=== PATIENT | female | born 1960 | race Caucasian/White ===

== ENCOUNTER 2024-01-25 08:18 | Outpatient (CLI) | payer BC, SELFPAY ==
[2024-01-25 18:00] LABS: Hemoglobin 13.8 g/dL (12.0-15.0); Mean Corpuscular HGB Conc 32.1 g/dl (32-36); Mean Corpuscular Hemoglobin 30.1 pg (26-34); Mean Corpuscular Volume 93.9 fl (80-100); Mean Platelet Volume 9.8 fl (7.4-10.4); Platelet Count Result 315 k/mm3 (150-375); Red Blood Count 4.58 M/mm3 (4.2-5.4); Red Cell Distribution Width 11.9 % (11.5-14.5); White Blood Count 5.1 K/mm3 (4.5-10.0)
[2024-01-25 18:09] LABS: Alanine Aminotransferase 16 U/L (6-35); Albumin Level 4.3 g/dL (3.5-5.1); Alkaline Phosphatase 62 U/L (38-126); Anion Gap 5 mmol/L (4-12); Aspartate Amino Transferase 31 U/L (14-36); Bilirubin,Total 0.6 mg/dL (0.2-1.3); Blood Urea Nitrogen 17 mg/dL (7-17); Carbon Dioxide 33 mmol/L (22-30); Chloride 102 mmol/L (98-107); Cholesterol 247 mg/dL (0-200); Estimated Glomerular Filt Rate > 60; Glucose 89 mg/dL (65-110); HDL Direct 48 mg/dL; Potassium 5.1 mmol/L (3.4-5.0); Sodium 140 mmol/L (137-145); Triglycerides 136 mg/dL (<150)
[2024-01-25 18:20] LABS: LDL Cholesterol Direct 124 mg/dL
[2024-01-25 18:39] LABS: Free T4 Free Thyroxine 1.28 ng/mL (0.78-2.19)
== END 2024-01-25 08:19 | disposition home or self-care (01) ==
LOC: ANHGOSHLAB 08:19
PROVIDERS: PCP Family Medicine; Visit Provider Family Medicine
DX: E78.5 Hyperlipidemia, unspecified (principal); E07.9 Disorder of thyroid, unspecified; I10 Essential (primary) hypertension
CPT/HCPCS: 36415; 80053; 80061; 84439; 84443; 85027

== ENCOUNTER 2024-02-29 07:24 | Outpatient (CLI) | payer BC, SELFPAY ==
--- NOTE | ~2024-02-29 | MM_ITS ---
EXAMINATION: MM screening servando BI w [place] HISTORY: Screening mammogram TECHNIQUE: Craniocaudal and mediolateral oblique 3-D tomosynthesis images were obtained and synthetic 2-D images were generated. CAD analysis was submitted and interpreted. COMPARISON: 10/17/2012 BREAST PARENCHYMAL COMPOSITION:Not Dense. There are scattered areas of fibroglandular density. FINDINGS: No suspicious mass, calcification, or architectural distortion are identified in either esvin ast to suggest malignancy. There has been no suspicious interval change. IMPRESSION: No mammographic evidence of malignancy. Recommend routine screening mammography in one year. BI-RADS Category 1: Negative Reviewed, dictated and finalized at location . EATING MACHINE SET UP OPERATOR
== END 2024-02-29 07:25 | disposition home or self-care (01) ==
LOC: CHSIMG 07:28
PROVIDERS: PCP Family Medicine; Visit Provider Family Medicine
DX: Z12.31 Encounter for screening mammogram for malignant neoplasm of breast (principal)
CPT/HCPCS: 77063; 77067

== ENCOUNTER 2024-06-02 08:15 | Outpatient (CLI) | payer BC, SELFPAY ==
--- OUTSIDE RECORDS SUMMARY | 2024-06-02 08:30 | XMS_ITS | Data Portability ---
Author Organization [facility], Main Office Address [address] [place] [address] Assessment No assessment recorded. Plan of Treatment Reminders Order Date Submit Date Provider Last Modified By Organization Details Last Modified Time Details Appointments None recorded. Lab pap, IG + reflex HPV (16+18+45) 2022 janel [email or web address] [facility], [address] [place], [address], 14:04:23 noninvasive colorectal cancer DNA + occult blood screening, QL, stool 2022 023 [id number] [facility] (Cologuard Orders Only), [address], [address], [place], [address], 10:44:33 lipid panel, serum 2022 [facility], [address] [place], [address], 14:11:50 CMP, serum or plasma 2022 023 [facility], [address] [place], [address], 14:12:01 Referral None recorded. Procedures None recorded. Surgeries None recorded. Imaging MAMMO, screening, bilateral 2022 023 [facility], [address] [place], [address], 12:14:02 Medication Orders None recorded. Patient TargetsNo targets recorded. Patient InstructionsNo instructions recorded. Reason for Referral None Reported. Results Created Date Observation Date Name Description Value Unit Range Abnormal Flag Note LastModifiedBy Organization Detail LastModifiedTime 01/14/2001/13/2022 LIPID PANEL cholesterol 218 mg/dL 140-19 9 high NIH KYARA NSUS RECOM MENDA TION FOR MARY KAY STERO L: ADULT CHILD LOW RISK: <200 <170 BORDE RLINE : <200- 239 ----- HIGH RISK: >240 >200 Not Available [facility] (Lab) [address] [place], [address], 01/13/2022 15:52:55 01/14/2001/13/2022 LIPID PANEL triglyceride s 87 mg/dL 0-150 NIH KYARA NSUS REPOR T RECOM MENDA TION FOR TRIGL YCERI MAKI: ADULT CHILD LOW RISK: <150 ----- BODER LINE: 150-1 99 ----- HIGH RISK: >200 ----- Not Available [facility] (Lab) [address] [place], [address], 01/13/2022 15:52:55 01/14/2001/13/2022 LIPID PANEL HDL cholesterol 58 mg/dL 40- Not Available [facility] (Lab) [address] [place], [address], 01/13/2022 15:52:55 01/14/20 22 01/13/2022 LIPID PANEL LDL cholesterol, calculated 143 mg/dL 0-130 high NIH KYARA NSUS REPOR T RECOM MENDA TIONS FOR LDL: ADULT CHILD LOW RISK <130 <110 (OPTI MAL LDL) <100 ----- BORDE RLINE : 130-1 59 ----- HIGH RISK: >160 >130 A TRIGL YCERI DE RESUL T >400 INVAL IDATE S THE CALCU LATIO N FOR LDL FRACT IONAT ION - THE LDL RESUL T WILL NOT BE REPOR ROSE. Not Available [facility] (Lab) [address] [place], [address], 01/13/2022 15:52:55 01/14/2001/13/2022 TSH thyroid-stim ulating hormone 2.370 uIU/m L 0.465- 4.680 Not Available [facility] (Lab) [address] [place], [address], 01/13/2022 16:16:04 01/14/2001/13/2022 COMPR EHENS OLENA METAB OLIC PANEL anion gap 9.9 mmol/ L 14-22 low Not Available [facility] (Lab) [address] [place], [address], 01/13/2022 15:52:58 01/14/2001/13/2022 COMPR EHENS OLENA METAB OLIC PANEL sodium 138 mmol/ L 137-14 5 Not Available [facility] (Lab) [address] [place], [address], 01/13/2022 15:52:58 01/14/2001/13/2022 COMPR EHENS OLENA METAB OLIC PANEL potassium 4.9 mmol/ L 3.5-5. 1 Not Available [facility] (Lab) [address] [place], [address], 01/13/2022 15:52:58 01/14/2001/13/2022 COMPR EHENS OLENA METAB OLIC PANEL chloride 101 mmol/ L 98-107 Not Available [facility] (Lab) [address] [place], [address], 01/13/2022 15:52:58 01/14/2001/13/2022 COMPR EHENS OLENA METAB OLIC PANEL carbon dioxide 32 mmol/ L 22-30 high Not Available [facility] (Lab) [address] [place], [address], 01/13/2022 15:52:58 01/14/20 22 01/13/2022 COMPR EHENS OLENA METAB OLIC PANEL glucose 95 mg/dL 70-99 Not Available [facility] (Lab) [address] [facility] [place], [address], 01/13/2022 15:52:58 01/14/20 22 01/13/2022 COMPR EHENS OLENA METAB OLIC PANEL BUN 17 mg/dL 8-19 Not Available [facility] (Lab) [address] [place], [address], 01/13/2022 15:52:58 01/14/20 22 01/13/2022 COMPR EHENS OLENA METAB OLIC PANEL creatinine 0.86 mg/dL 0.66-1 .25 Not Available [facility] (Lab) [address] [place], [address], 01/13/2022 15:52:58 01/14/20 22 01/13/2022 COMPR EHENS OLENA METAB OLIC PANEL GFR >60 Refer ence Range : Bowie ge GFR Healt hy Adult : >60 mL/mi n/1.7 3 m2 Chron ic Kidne y Disea se: 15-60 mL/mi n/1.7 3 m2 Kidne y Failu re: <15/m L/min /1.73 m2 www.n iddk. nih.g ov The MDRD study equat ion has not been valid ated in child artem <18 years of age; pregn ant women ; the elder ly >85 years of age; or in some racia l or ethni c subgr oups, such as [facility] nics. Outsi de the valid ated reyes eters , estim ated GFR is less accur ate, requi ring clini hi judgm ent on a case- by-ca se basis . Clini hi inter preta tion for other races and ages must be made by the clini yumi. The MDRD study equat ion has not been valid ated for the evalu ation of serum creat inine relat ed to nutri brianna l statu s or medic ation usage . For perso ns <18 years of age, a pedia tric GFR calcu lator is avail able on the [facility] websi te: https ://margarita sadler.kid anika.o rg/pr ofess ional s/kdo qi/gf r_cal culat or Not Available [facility] (Lab) [address] [place], [address], 01/13/2022 15:52:58 01/14/20 22 01/13/2022 COMPR EHENS OLENA METAB OLIC PANEL alkaline phosphatase 62 U/L 38-126 Not Available [facility] (Lab) [address] [place], [address], 01/13/2022 15:52:58 01/14/20 22 01/13/2022 COMPR EHENS OLENA METAB OLIC PANEL alanine aminotransfe rase 19 U/L 0-35 Not Available [facility] (Lab) [address] [place], [address], 01/13/2022 15:52:58 01/14/20 22 01/13/2022 COMPR EHENS OLENA METAB OLIC PANEL aspartate aminotransfe rase 25 U/L 15-37 Not Available [facility] (Lab) [address] [place], [address], 01/13/2022 15:52:58 01/14/20 22 01/13/2022 COMPR EHENS OLENA METAB OLIC PANEL bilirubin, total 0.80 mg/dL 0.20-1 .30 Not Available [facility] (Lab) [address] [place], [address], 01/13/2022 15:52:58 01/14/20 22 01/13/2022 COMPR EHENS OLENA METAB OLIC PANEL calcium 9.7 mg/dL 8.4-10 .2 Not Available [facility] (Lab) [address] [place], [address], 01/13/2022 15:52:58 01/14/20 22 01/13/2022 COMPR EHENS OLENA METAB OLIC PANEL total protein 7.4 g/dL 6.3-8. 2 Not Available [facility] (Lab) [address] [place], [address], 01/13/2022 15:52:58 01/14/2001/13/2022 COMPR EHENS OLENA METAB OLIC PANEL albumin 4.5 g/dL 3.4-5. 0 Not Available [facility] (Lab) [address] [place], [address], 01/13/2022 15:52:58 01/14/2001/13/2022 COMPR EHENS OLENA METAB OLIC PANEL globulin 2.9 g/dL 2.6-4. 2 Not Available [facility] (Lab) [address] [place], [address], 01/13/2022 15:52:58 01/14/2001/13/2022 COMPR EHENS OLENA METAB OLIC PANEL A/G ratio 1.6 ratio 1.0-2. 0 Not Available [facility] (Lab) [address] [place], [address], 01/13/2022 15:52:58 02/02/2002/01/2022 urina lysis , dipst ick Leukocytes (reference range: negative latasha/ l) Trace Not Available [facility] [address], [place], [address], 02/01/2022 15:07:14 02/02/20 22 02/01/2022 urina lysis , dipst ick Nitrite (reference rage: negative mg/dl) negati ve Not Available [facility], [place], [address], 02/01/2022 15:07:14 02/02/20 22 02/01/2022 urina lysis , dipst ick Urobilinogen (reference range: 0.2-1 mg/dl) 0.2 Not Available [facility] [address] , [address], [place], [address], 02/01/2022 15:07:14 02/02/2002/01/2022 urina lysis , dipst ick Protein (reference range: negative mg/dl) Negati ve Not Available [address] , [address], [place], [address], 02/01/2022 15:07:14 02/02/20 22 02/01/2022 urina lysis , dipst ick pH (reference range: 5-7) 5.5 Not Available [address] , [address], [place], [address], 02/01/2022 15:07:14 02/02/2002/01/2022 urina lysis , dipst ick Blood (reference range: negative Doni/ l) Non-He molyze d: Trace Not Available [address] , [address], [place], [address], 02/01/2022 15:07:14 02/02/20 22 02/01/2022 urina lysis , dipst ick Specific [place] (reference range: 1.005-1.030) 1.005 Not Available [address] , [address], [place], [address], 02/01/2022 15:07:14 02/02/2002/01/2022 urina lysis , dipst ick Ketone (reference range: negative mg/dl) Negati ve Not Available [address] , [address], [place], [address], 02/01/2022 15:07:14 02/02/20 22 02/01/2022 urina lysis , dipst ick Bilirubin (reference range: negative mg/dl) Negati ve Not Available [address], [place], [address], 02/01/2022 15:07:14 02/02/2002/01/2022 urina lysis , dipst ick Glucose (reference range: negative mg/dl) Negati ve Not Available [address] , [address], [place], [address], 02/01/2022 15:07:14 02/02/2002/01/2022 urina lysis , dipst ick Appearance Clear Not Available [address], [place], [address], 02/01/2022 15:07:14 02/02/2002/01/2022 urina lysis , dipst ick Color Pale Yellow Not Available [address] , [address], [place], [address], 02/01/2022 15:07:14 01/16/20 23 01/19/2023 PAP THINP REP W/HPV ,RF 16/18 /45 diagnosis: Commen t . NEGVITALY OLENA FOR INTRA EPITH ELIAL LESIO N OR YAA LAGUNAS . CELLU LAR CRABTREE ES ASSOC IATED WITH ATROP HY ARE PRESE NT. THIS SPECI MEN WAS RESCR EENED PART OF OUR QUALI TY CONTR OL PROGR AM. Not Available [facility] (Lab) [address] [place], [address], 01/19/2023 15:10:20 01/16/20 23 01/19/2023 PAP THINP REP W/HPV ,RF 16/18 /45 specimen adequacy: Commen t . Satis facto ry for evalu ation . Endoc ervic al compo nent may not be disti nguis hed in cases of atrop hy. Not Available [facility] (Lab) [address] [place], [address], 01/19/2023 15:10:20 01/16/20 23 01/19/2023 PAP THINP REP W/HPV ,RF 16/18 /45 performed by: Shweta Kasper , Cytot echno logis t Not Available [facility] (Lab) [address] [place], [address], 01/19/2023 15:10:20 01/16/20 23 01/19/2023 PAP THINP REP W/HPV ,RF 16/18 /45 QC reviewed by: Shweta Morales r, Super visor y Cytot echno logis t (ASCP ) Not Available [facility] (Lab) [address] [place], [address], 01/19/2023 15:10:20 01/16/20 23 01/19/2023 PAP THINP REP W/HPV ,RF 16/18 /45 . . Not Available [facility] (Lab) [address] [place], [address], 01/19/2023 15:10:20 01/16/20 23 01/19/2023 PAP THINP REP W/HPV ,RF 16/18 /45 note: Shweta weiss The Pap smear is a scree william test desig adeline to aid in the detec tion of rose ligna nt and malig nant condi tions of the uteri ne cervi x. It is not a diagn ostic proce dure and shoul d not be used as the sole means of detec ting cervi hi cance r. Both false -posi tive and false -nega tive repor ts do occur . . Not Available [facility] (Lab) [address] [place], [address], 01/19/2023 15:10:20 01/16/20 23 01/19/2023 PAP THINP REP W/HPV ,RF 16/18 /45 test methodology: Commen t This liqui d based ThinP rep(R ) pap test was screirena lr with the use of an image guide caron saucedo Not Available [facility] (Lab) [address] [place], [address], 01/19/2023 15:10:20 01/16/20 23 01/19/2023 PAP THINP REP W/HPV ,RF 16/18 /45 aptima HPV, reflex Commen t This nucle ic acid ampli ficat ion test detec ts fourt een high- risk HPV types (16,1 8,31, 33,35 ,39,4 5,51, 52,56 ,58,5 9,66, 68) witho ut diffe renti ation . Crite samina not met, HPV Genot ype not perfo rmed. Perfo rmed at: [facility] [place] [address] [facility] , [facility] [address] Lab Direc tor: Carly osborn MD, Phone : [phone] Perfo rmed at: =[facility] [place] [address] , [place] [address] Lab Direc tor: Carly osborn MD, Phone : [phone] Not Available [facility] (Lab) [address] [place], [address], 01/19/2023 15:10:20 01/23/20 23 01/22/2023 LIPID PANEL cholesterol 227 mg/dL 140-19 9 high NIH KYARA NSUS RECOM MENDA TION FOR MARY KAY STERO L: ADULT CHILD LOW RISK: <200 <170 BORDE RLINE : <200- 239 ----- HIGH RISK: >240 >200 Not Available [facility] (Lab) [address] [place], [address], 01/22/2023 14:11:50 01/23/20 23 01/22/2023 LIPID PANEL triglyceride s 74 mg/dL 0-150 NIH KYARA NSUS REPOR T RECOM MENDA TION FOR TRIGL YCERI MAKI: ADULT CHILD LOW RISK: <150 ----- BODER LINE: 150-1 99 ----- HIGH RISK: >200 ----- Not Available [facility] (Lab) [address] [place], [address], 01/22/2023 14:11:50 01/23/2001/22/2023 LIPID PANEL HDL cholesterol 60 mg/dL 40- Not Available [facility] (Lab) [address] [place], [address], 01/22/2023 14:11:50 01/23/2001/22/2023 LIPID PANEL LDL cholesterol, calculated 152 mg/dL 0-130 high NIH KYARA NSUS REPOR T RECOM MENDA TIONS FOR LDL: ADULT CHILD LOW RISK <130 <110 (OPTI MAL LDL) <100 ----- BORDE RLINE : 130-1 59 ----- HIGH RISK: >160 >130 A TRIGL YCERI DE RESUL T >400 INVAL IDATE S THE CALCU LATIO N FOR LDL FRACT IONAT ION - THE LDL RESUL T WILL NOT BE REPOR ROSE. Not Available [facility] (Lab) [address] [place], [address], 01/22/2023 14:11:50 01/23/20 23 01/22/2023 COMPR EHENS OLENA METAB OLIC PANEL sodium 139 mmol/ L 137-14 5 Not Available [facility] (Lab) [address] [place], [address], 01/22/2023 14:12:01 01/23/20 23 01/22/2023 COMPR EHENS OLENA METAB OLIC PANEL potassium 4.5 mmol/ L 3.5-5. 1 Not Available [facility] (Lab) [address] [place], [address], 01/22/2023 14:12:01 01/23/2001/22/2023 COMPR EHENS OLENA METAB OLIC PANEL chloride 101 mmol/ L 98-107 Not Available [facility] (Lab) [address] [place], [address], 01/22/2023 14:12:01 01/23/2001/22/2023 COMPR EHENS OLENA METAB OLIC PANEL carbon dioxide 32 mmol/ L 22-30 high Not Available [facility] (Lab) [address] [place], [address], 01/22/2023 14:12:01 01/23/2001/22/2023 COMPR EHENS OLENA METAB OLIC PANEL anion gap 10.5 mmol/ L 14-22 low Not Available [facility] (Lab) [address] [place], [address], 01/22/2023 14:12:01 01/23/2001/22/2023 COMPR EHENS OLENA METAB OLIC PANEL glucose 84 mg/dL 70-99 Not Available [facility] (Lab) [address] [place], [address], 01/22/2023 14:12:01 01/23/2001/22/2023 COMPR EHENS OLENA METAB OLIC PANEL BUN 17 mg/dL 8-19 Not Available [facility] (Lab) [address] [place], [address], 01/22/2023 14:12:01 01/23/2001/22/2023 COMPR EHENS OLENA METAB OLIC PANEL creatinine 0.95 mg/dL 0.66-1 .25 Not Available [facility] (Lab) [address] [place], [address], 01/22/2023 14:12:01 01/23/2001/22/2023 COMPR EHENS OLENA METAB OLIC PANEL GFR 60 Refer ence Range : Bowie ge GFR Healt hy Adult : >60 mL/mi n/1.7 3 m2 Chron ic Kidne y Disea se: 15-60 mL/mi n/1.7 3 m2 Kidne y Failu re: <15/m L/min /1.73 m2 www.n iddk. nih.g ov The MDRD study equat ion has not been valid ated in child artem <18 years of age; pregn ant women ; the elder ly >85 years of age; or in some racia l or ethni c subgr oups, such as Hispa nics. Outsi de the valid ated reyes eters , estim ated GFR is less accur ate, requi ring clini hi judgm ent on a case- by-ca se basis . Clini hi inter preta tion for other races and ages must be made by the clini yumi. The MDRD study equat ion has not been valid ated for the evalu ation of serum creat inine relat ed to nutri brianna l statu s or medic ation usage . For perso ns <18 years of age, a pedia tric GFR calcu lator is avail able on the [facility] websi te: https ://margarita w.kamini donaldson.o rg/pr ofess ional s/kdo qi/gf r_cal culat or Not Available [facility] (Lab) [address] [place], [address], 01/22/2023 14:12:01 01/23/2001/22/2023 COMPR EHENS OLENA METAB OLIC PANEL alkaline phosphatase 57 U/L 38-126 Not Available [facility] (Lab) [address] [place], [address], 01/22/2023 14:12:01 01/23/2001/22/2023 COMPR EHENS OLENA METAB OLIC PANEL alanine aminotransfe rase 19 U/L 0-35 Not Available [facility] (Lab) [address] [place], [address], 01/22/2023 14:12:01 01/23/2001/22/2023 COMPR EHENS OLENA METAB OLIC PANEL aspartate aminotransfe rase 26 U/L 15-37 Not Available [facility] (Lab) [address] [place], [address], 01/22/2023 14:12:01 01/23/20 23 01/22/2023 COMPR EHENS OLENA METAB OLIC PANEL bilirubin, total 0.70 mg/dL 0.20-1 .30 Not Available [facility] (Lab) [address] [place], [address], 01/22/2023 14:12:01 01/23/2001/22/2023 COMPR EHENS OLENA METAB OLIC PANEL calcium 10.0 mg/dL 8.4-10 .2 Not Available [facility] (Lab) [address] [place], [address], 01/22/2023 14:12:01 01/23/2001/22/2023 COMPR EHENS OLENA METAB OLIC PANEL total protein 7.5 g/dL 6.3-8. 2 Not Available [facility] (Lab) [address] [place], [address], 01/22/2023 14:12:01 01/23/2001/22/2023 COMPR EHENS OLENA METAB OLIC PANEL albumin 4.4 g/dL 3.4-5. 0 Not Available [facility] (Lab) [address] [place], [address], 01/22/2023 14:12:01 01/23/2001/22/2023 COMPR EHENS OLENA METAB OLIC PANEL globulin 3.1 g/dL 2.6-4. 2 Not Available [facility] (Lab) [address] [place], [address], 01/22/2023 14:12:01 01/23/20 23 01/22/2023 COMPR EHENS OLENA METAB OLIC PANEL A/G ratio 1.4 ratio 1.0-2. 0 Not Available [facility] (Lab) [address], [place], [address], 01/22/2023 14:12:01 01/26/20 23 01/25/2023 COLOG UARD cologuard result reportable NEGATI VE negati ve normal NEGAT OLENA TEST RESUL T. A negat olena Colog uard resul t indic ates a low likel ihood that a color ectal cance r (CRC) or advan valorie adeno ma (jesús omato us polyp s with more advan valorie pre-m align ant featu res) is prese nt. The [facility] e that a perso n with a negat olena Colog uard test has a color ectal cance r is less than 1 in 1500 (nega tive predi ctive value >99.9 %) or has an advan valorie adeno ma is less than 5.3% (nega tive predi ctive value 94.7% ). These data are based on a prosp ectiv e cross -sect ional study of ,00 0 indiv idual s at [facility] risk for color ectal cance r who were scree adeline with both Colog uard and colon oscop y. (Carlos Perez et al, N Engl J Med 2014; 370(1 4):12 86-12 97) The reynold l value (refe rence range ) for this assay is negat olena. COLOG UARD RE-SC REEMELVIN NG RECOM MENDA TION: Perio dic color ectal cance r scree william is an impor tant part of preve ntive healt hcare for asymp tomat ic indiv idual s at [facility] risk for color ectal cance r. Follo wing a negat olena Colog uard resul t, the Ameri can Cance r Socie ty and U.S. Multi -Soci ety Task Force scree william guide lines recom mend a Colog uard re-sc reeni ng inter joanne of 3 years . Refer ences : Ameri can Cance r Socie ty Guide line for Color ectal Cance r Scree william: https ://margarita w.can cer.o rg/ca ncer/ colon -rect al-ca ncer/ detec tion- diagn osis- stagi ng/ac s-rec ommen datio ns.ht ml.; Braden OLMSTEAD, Nathan reardon CR, Chralie ValdezK, Color ectal Cance r Screirena gomezg: Recom menda tions for Physi cians and Patie nts from the U.S. Multi -Soci ety Task Force on Color ectal Cance r ScreAvni malaveog y 2017; 112:1 016-1 030. TEST DESCR IPTIO N: Wanblee site algor ithmi c dar sis of stool DNA-b iomar kers with hemog lobin immun oassa y. Quant itati ve value s of indiv idual bioma rkers are not repor table and are not assoc iated with indiv idual bioma rker resul t refer ence range s. Colog uard is inten ded for color ectal cance r scree william of adult s of eithe r sex, 45 years or older , who are at [facility] for color ectal cance r (CRC) . Colog uard has been appro jo ann for use by the U.S. FDA. The perfo rmanc e of Colog uard was estab lishe d in a cross secti onal study of [facility] adult s aged 50-84 . Colog uard perfo rmanc e in patie nts ages 45 to 49 years was estim ated by luz elena-g roup dar sis of near- age group s. Colon oscop ies perfo rmed for a posit olena resul t may find as the most clini katelynn signi ficralf t lesio n: color ectal cance r [4.0% ], advan valorie adeno ma (incl uding sessi le bienvenido rose polyp s great er than or equal to 1cm diame ter) [20%] or non- advan valorie adeno ma [31%] ; or no color ectal neopl sugar [45%] . These estim ates are deriv ed from a prosp ectiv e cross -sect ional scree william study of 10,00 0 indiv idual s at [facility] for color ectal cance r who were scree adeline with both Colog uard and colon oscop y. (Carlos Weiss. et al, N Engl J Med 2014; 370(1 4):12 86-12 97.) Colog uard may produ ce a false negat olena or false posit olena resul t (no color ectal cance r or preca ncero us polyp prese nt at colon oscop y follo w up). A negat olena Colog uard test resul t does not guara ntee the absen ce of CRC or advan valorie adeno ma (pre- cance r). The curre nt Colog uard scree william inter joanne is every 3 years . (Amer ican Cance r Socie ty and U.S. Multi -Soci ety Task Force ). Colog uard perfo rmanc e data in a ,00 0 patie nt pivot al study using colon oscop y as the refer ence metho d can be acces sed at the [facility] locat ion: www.e xactl abs.c om/re deena . Addit ional descr iptio n of the Colog uard test proce ss, warni ngs and preca ution s can be found at www.c ologu ramirez.c om. Not Available [facility] (Cologuard Orders Only) [address], [place], [address], 02/02/2023 02:16:30 12/09/19 21 12/08/2020 MAMMO , scree william, bilat eral No observ ation record ed. [id number] [facility] [address] [place], [address], 06/07/2022 06:05:12 12/09/19 21 MAMMO , scree william, digit al, bilat eral [facility] [address] [place] [address] Patien t Name: ROSSANA HAY Access ion #: [id number] Sex: F : 1960 9 Locati on: RA2 Attend ing Physic vince: ELKHAT IB, RUNDA Orderi ng Physic vince: ELKHAT IB, RUNDA Exam Date: 12/09/19 2:53 PM Exam Name: DIGITA L LILIA BILAT SCREEN Admitt ing Diagno sis(es ): RADIOL OGY REPORT - FINAL EXAM: MG DIGITA L LILIA BILAT SCREEN HISTOR Y: screen ing mammog bhumi COMPAR HECTOR: Mammog minda dated 2019 and 2018 and 2007 TECHNI QUE: Bilate ral CC and MLO views of the breast s were perfor med. Digita l Mammog minda images were obtain ed. CAD (compu ter assist ed detect ion) was utiliz ed. FINDIN GS: The breast s are hetero geneou sly dense, which may obscur e small masses . Asymme tric left upper outer quadra nt breast tissue is redemo nstrat ed. No masses , asymme tries, suspic ious calcif icatio ns, or carmina ectura l Page 1 of 2 [facility] t Name: ROSSANA HAY Access ion #: [id number] Sex: F : 1960 9 Exam Date: 12/09/19 2:53 PM Exam Name: DIGITA L LILIA BILAT SCREEN Admitt ing Diagno sis(es ): distor tion are seen. IMPRES LIZZIE: BIRADS 1: Assess ment comple te. Negati ve. Recomm end annual screen ing mammog minda. Accord ing to the [employer], yearly mammog daniel are recomm ended starti ng at age 40 and contin uing as long as the woman is in good health . Clinic al Breast Exam should be part of the period health exam-a bout every 3 years for women in their 20s and 30s and every year for women 40 and over. Breast self-e xam is an option for women in their 20s. Any breast change noted on the breast self-e xam she would be report ed prompt ly to the [facility] er. A negati ve mammog minda report should not discou rage follow -up or biopsy of a clinic ally signif icant findin g and/or abnorm ality. Dense breast tissue may obscur e small neopla sms. This [facility] has been entere d into a mammog minda remind er system with a target date for her next mammog bhumi. Create d and electr onical ly signed by: Manuel Gomes ch, DO Signed Date: 12/09/19 3:15 PM (CT) Dictat ed by: Manuel Gomes ch, DO (CT) (CT) Page 2 of 2 [id number] [facility] (Imaging) [address] [place], [address], 06/07/2022 06:05:12 01/26/2001/25/2022 MAMMO , scree william, bilat eral No observ ation record ed. [id number] [facility] Add On Lab Orders [address] [place], [address], 06/07/2022 06:05:12 01/26/20 MAMMO , scree william, digit al, bilat eral [facility] [address] [place] [address] Jet weiss Name: ROSSANA HAY Access ion #: [id number] Sex: F : 1960 4 Locati on: RA2 Attend ing Physic vince: ELKHAT IB, RUNDA Orderi ng Physic vince: ELKHAT IB, RUNDA Exam Date: 2021 8:00 AM Exam Name: MG DIGITA L LILIA BILAT SCREEN Admitt ing Diagno sis(es ): RADIOL OGY REPORT - FINAL EXAM: MG DIGITA L LILIA BILAT SCREEN HISTOR Y: Screen ing mammog minda COMPAR HECTOR: 2020, 2019, 2014 TECHNI QUE: Bilate ral CC and MLO views of the breast s were perfor med. Digita l Mammog minda images were obtain ed. CAD (compu ter assist ed detect ion) was utiliz ed. FINDIN GS: There are scatte red areas of fibrog landul ar densit y. No masses , asymme tries, suspic ious calcif icatio ns, or carmina ectura l distor tion are seen. Page 1 of 2 [facility] Jet weiss Name: ROSSANA HAY Access ion #: [id number] Sex: F : 1960 4 Exam Date: 2021 8:00 AM Exam Name: MG DIGITA L LILIA BILAT SCREEN Admitt ing Diagno sis(es ): IMPRES LIZZIE: BIRADS 1: Assess ment comple te. Negati ve. Recomm end annual screen ing mammog minda. Accord ing to the [employer], yearly mammog daniel are recomm ended starti ng at age 40 and contin uing as long as the woman is in good health . Clinic al Breast Exam should be part of the period ic health exam-a bout every 3 years for women in their 20s and 30s and every year for women 40 and over. Breast self-e xam is an option for women in their 20s. Any breast change noted on the breast self-e xam she would be report ed prompt ly to the [facility]. A negati ve mammog minda report should not discou rage follow -up or biopsy of a clinic ally signif icant findin g and/or abnorm ality. Dense breast tissue may obscur e small neopla sms. This jet weiss has been entere d into a mammog minda remind er system with a target date for her next mammog bhumi. Create d and electr onical ly signed by: Carloz brewer MD Signed Date: 2021 2:26 PM (CT) Dictat ed by: Carloz brewer MD DD: 2021 2:26 PM (CT) DT: 2021 2:26 PM (CT) Page 2 of 2 [id number] [facility] (Imaging) [address] [place], [address], 06/07/2022 06:05:12 01/20/20 23 MAMMO , scree william, digit al, bilat eral [facility] [address] [facility] [place] [address] Patien t Name: ROSSANA HAY Access ion #: [id number] Sex: F : 1960 4 Dictat ed By: Colleen Ervin Attend ing Physic vince: ELKHAT IB, RUNDA Orderi ng Physic vince: ELKHAT IB, RUNDA Exam Date: 2022 09:40 AM Exam Name: MG DIGITA L LILIA BILAT SCREEN Admitt ing Diagno sis(es ): CLINIC AL HISTOR Y: Screen ing COMPAR HECTOR STUDY: 2021; 12/09/19 21 TECHNI QUE: Using a full field digita l 2D mammog minda unit CC and MLO views of both breast s are perfor med. FINDIN GS: BREAST COMPOS ITION: The bilate ral breast s are hetero geneou sly dense, which may obscur e small masses . No suspic ious masses , carmina ectura l distor tion, asymme tries or suspic ious calcif icatio ns in both breast s. IMPRES LIZZIE: No eviden ce of malign jamaal. Recomm end annual mammog bhumi. BIRADS : 2 - Benign Electr onical ly Signed by: Colleen Ervin at 2022 11:05: 41 AM Page 1 [id number] [facility] (Imaging) [address] [place], [address], 01/22/2023 08:46:53 01/20/20 23 01/19/2023 MAMMO , scree william, bilat eral No observ ation record ed. [id number] [facility] [address] [place], [address], 01/22/2023 08:46:53 Result Notes None recorded. Problems Name Problem SNOMED Code Status Onset Date Resolution Date Notes Provider Name and Address Organization Details Recorded Time Shoulder joint pain 463394354 Active Not Available [facility] 3 08:59:35 Hypertensive disorder 79268721 Active Not Available [facility] 3 08:59:35 Contact dermatitis 66763706 Active Not Available [facility] 3 08:59:35 Hypothyroidis m 95381950 Active Not Available [facility] 3 08:59:35 Stress 12750016 Active Not Available [facility] 3 08:59:35 Anxiety 71089572 Active 2022 Not Available [facility] 3 08:59:35 Hyperlipidemi a 18745333 Active 2022 Not Available [facility] 3 08:59:35 Problem Notes None recorded. Procedures Surgical History Date Name Laterality Status Provider Name and Address Organization Details Recorded Time 12/09/19 21 screening mammography completed Not Available [facility] 06/07/2022 05:53:26 12/02/19 21 screening for malignant neoplasm of cervix completed Not Available [facility] 06/07/2022 05:53:26 Imaging Results Imaging Date Name Status LastModified by Organiz ation Details LastModified Time 12/08/2020 MAMMO, screening, bilateral completed [id number] [facility] [address] [place], [address], 06/07/2022 06:05:12 12/08/2020 MAMMO, screening, digital, bilateral completed [id number] [facility] (Imaging) [address] [place], [address], 06/07/2022 06:05:12 01/25/2022 MAMMO, screening, bilateral completed [id number] [facility] Add On Lab Orders [address] [place], [address], 06/07/2022 06:05:12 01/25/2022 MAMMO, screening, digital, bilateral completed [id number] [facility] (Imaging) [address] [place], [address], 06/07/2022 06:05:12 01/19/2023 MAMMO, screening, digital, bilateral completed [address] (Imaging) [address] [place], [address], 01/22/2023 08:46:53 01/19/2023 MAMMO, screening, bilateral completed [address] [place], [address], 01/22/2023 08:46:53 Procedure Notes None recorded. Medical Equipment None Reported. Allergies No known drug allergies Medications Name Sig Start Date Stop Date Status Note LastModified by Organization Details LastModified Time methocarbam ol 500 mg tablet 11/03 completed Not Available Not Available Not Available prednisone 10 mg tablet 05/22 completed Not Available Not Available Not Available azithromyci n 250 mg tablet TAKE 2 TABLETS (500 MG) BY ORAL ROUTE ONCE DAILY FOR 1 DAY THEN 1 TABLET (250 MG) BY ORAL ROUTE ONCE DAILY FOR 4 DAYS active Not Available Not Available No t Available citalopram 10 mg tablet TAKE 1 TABLET BY MOUTH ONCE DAILY active Not Available Not Available No t Available ciprofloxac in 500 mg tablet Take 1 tablet every 12 hours by oral route for 5 days. 01/15 completed Not Available Not Available Not Available sulfamethox azole 800 mg-trimetho prim 160 mg tablet 05/22 completed Not Available Not Available Not Available triamterene 37.5 mg-hydrochl orothiazide 25 mg capsule TAKE 1 CAPSULE DAILY active Not Available Not Available No t Available triamcinolo ne acetonide 0.1 % topical cream APPLY A THIN LAYER TO THE AFFECTED AREA(S) BY TOPICAL ROUTE 2 TIMES PER DAY active Not Available Not Available No t Available levothyroxi ne 88 mcg tablet Take 1 tablet by mouth once daily active Not Available Not Available No t Available benzonatate 100 mg capsule 11/20 completed Not Available Not Available Not Available oseltamivir 75 mg capsule 11/20 completed Not Available Not Available Not Available methylpredn isolone 4 mg tablets in a dose pack Take by oral route. Take as per package direction s 05/22 completed Not Available Not Available Not Available amoxicillin 875 mg-potassiu m clavulanate 125 mg tablet Take 1 tablet every 12 hours by oral route. 10/30 completed Not Available Not Available Not Available Shingrix (PF) 50 mcg/0.5 mL intramuscul ar suspension, kit 11/03 completed Not Available Not Available Not Available Flucelvax Quad (PF) 60 mcg (15 mcg x 4)/0.5 mL IM syringe active Not Available Not Available N ot Available Afluria Qd (36 mos up)(PF)60 mcg (15 mcg x4)/0.5 mL IM syringe active Not Available Not Available N ot Available Vitals Date Recorded Body mass index (BMI) Body height Oxygen saturation Oxygen saturation in Arterial blood by Pulse oximetry Heart rate Body temperature Body weight Systolic blood pressure Diastolic blood pressure Provider Name and Address Organization Details Last Updated DateTime 1 22.5 kg/m2 162.56 cm 96 % 96 % 71 /min 97.5 [degF] 64824.6 g 140 mm[Hg] 80 mm[Hg] Not Available [facility] 3 05:55:50 Date Recorded Body mass index (BMI) Body height Oxygen saturation Oxygen saturation in Arterial blood by Pulse oximetry Heart rate Body temperature Body weight Systolic blood pressure Diastolic blood pressure Provider Name and Address Organization Details Last Updated DateTime 2 22.5 kg/m2 162.56 cm 97 % 97 % 74 /min 96.4 [degF] 04734.6 g 144 mm[Hg] 80 mm[Hg] Not Available [facility] 3 05:55:50 Date Recorded Body height Provider Name an d Address Organization Details Last Updated DateTime 02/01/2022 162.56 cm Not Available [facility] 3 05:55:51 Date Recorded Body height Body mass index (BMI) Body weight Body temperature Heart rate Oxygen saturation Oxygen saturation in Arterial blood by Pulse oximetry Systolic blood pressure Diastolic blood pressure Provider Name and Address Organization Details Last Updated DateTime 3 162.56 cm 21.6 kg/m2 26414.6 4 g 97.7 [degF] 69 /min 99 % 99 % 124 mm[Hg] 68 mm[Hg] Stephanie boateng CMA [place] [facility] 10:28:36 Social History Question Answer Notes LastModified by Organizat ion Details LastModified Time Tobacco Smoking Status Never Smoker Not Available [facility] 06/07/2022 05:53:04 In The 14 Days Before Symptom Onset, Have You Had Close Contact With A Laboratory-confir med COVID-19 While That Case Was Ill? No [id number] Information not available 06/07/2022 In The 14 Days Before Symptom Onset, Have You Had Close Contact With A Person Who Is Under Investigation For COVID-19 While That Person Was Ill? No [id number] Information not available 06/07/2022 What Is Your Occupation? [employer] [id number] Information not available 06/07/2022 Have You Recently Traveled Abroad? No [id number] Information not available 06/07/2022 Sex: Unknown Functional Status None recorded. Mental Status None recorded. Family History Relationship Description Onset Age of this Age Resolved Age Notes LastModified by Organization Details LastModified Time Father Heart disease [id number] Not available 06/07/2022 05:53:26 Mother Heart disease [id number] Not available 06/07/2022 05:53:26 Paternal Grandmother Heart disease [id number] Not available 06/07/2022 05:53:26 Paternal Grandfather Heart disease [id number] Not available 06/07/2022 05:53:26 Maternal Grandfather Heart disease [id number] Not available 06/07/2022 05:53:26 Maternal Grandmother Heart disease [id number] Not available 06/07/2022 05:53:26 Medical History No medical history recorded. Gynecological HistoryNo gynecological history recorded. Obstetrics History GPAL:G 0 P 0 0 0 0 Immunizations Vaccine Type Date Status Note Provider Nam e and Address Organization Details Recorded Time Tdap 09/20/2011 completed Not Available [facility] 01/23/2023 08:59:35 Influenza, split virus, quadrivalent, PF 01/12/2022 completed Not Available [facility] 08:59:35 Past Encounters Encounter ID Performer Location Encounter Start Date Encounter Closed Date Diagnosis/Indication Diagnosis SNOMED-CT Code Diagnosis ICD10 Code Diagnosis Note [id number] [facility] [place] [address] [facility] y , [place] [address] 12/01/2020 00:00:00 12/01/2020 21:48:37 [id number] [facility] [place] [address] [place] [address] [place] [address] 05/24/2021 00:00:00 06/10/2021 08:34:32 [id number] [facility] [place] [address] [place] [address] [place] [address] 01/12/2022 00:00:00 01/12/2022 20:02:39 [id number] [facility] [place] [address] [place] [address] [place] [address] 02/01/2022 00:00:00 02/28/2022 21:21:57 [id number] Kaitlin Mi MD [facility] [address] [place] [address] [place] [address] 01/15/2023 10:12:27 01/15/2023 11:09:07 Gynecologic examination 36406217 Z01.419 Hyperlipidemia 27353755 E78.5 Screening for malignant neoplasm of breast 579720432 Z12.39 Screening for malignant neoplasm of colon 182192566 Z12.11 Health Concerns Section Related Observation LastModified by Organization Detai ls LastModified Time None Recorded Concern Status LastModified by Organization Details LastModified Time None Recorded Advance Directives Directive None Recorded Payers Encounter Date Sequence Insurance Name Policy Number Policy Guy Covered Member ID Guy Member ID Guarantor Name 01/15/2023 1 [employer] [id number] Rossana E Lasseigne [id number] Rossana Us Notes Date Note Type Note Provider Name and Address Organization Details Recorded Time 01/15/2023 text/html Here today for [employer]. Needs a mammogram. Needs BW done. No colonoscopy for 10 years. No fmhx of colon cancer. Wants to do cologuard. No female issues. No fmhx of female cancers. Kaitlin Mi MD [address] [address], [place], [address], [place] [facility] 01/15/2023 20:43:37 OBGyn Episode No OBEpisode recorded.
[2024-06-02 12:31] LABS: Hematocrit 43.8 % (37.0-47.0); Hemoglobin 14.2 g/dL (12.0-15.0); Mean Corpuscular HGB Conc 32.4 g/dl (32-36); Mean Corpuscular Hemoglobin 30.2 pg (26-34); Mean Corpuscular Volume 93.2 fl (80-100); Mean Platelet Volume 9.9 fl (7.4-10.4); Platelet Count Result 290 k/mm3 (150-375); Red Cell Distribution Width 11.9 % (11.5-14.5); White Blood Count 5.3 K/mm3 (4.5-10.0)
[2024-06-02 12:54] LABS: Free T4 Free Thyroxine 1.47 ng/dL (0.78-2.19)
[2024-06-02 13:31] LABS: Alanine Aminotransferase 19 U/L (6-35); Albumin Level 4.5 g/dL (3.5-5.1); Alkaline Phosphatase 65 U/L (38-126); Anion Gap 11 mmol/L (4-12); Aspartate Amino Transferase 48 U/L (14-36); Bilirubin,Total 0.8 mg/dL (0.2-1.3); Blood Urea Nitrogen 20 mg/dL (7-17); Calcium 9.7 mg/dL (8.4-10.2); Carbon Dioxide 28 mmol/L (22-30); Chloride 100 mmol/L (98-107); Cholesterol 140 mg/dL (0-200); Estimated Glomerular Filt Rate > 60; Glucose 80 mg/dL (65-110); HDL Direct 50 mg/dL; Potassium 4.4 mmol/L (3.4-5.0); Sodium 139 mmol/L (137-145); Triglycerides 71 mg/dL (<150)
[2024-06-02 13:42] LABS: LDL Cholesterol Direct 53 mg/dL
== END 2024-06-02 08:16 | disposition home or self-care (01) ==
PROVIDERS: PCP Family Medicine; Visit Provider Family Medicine
DX: E78.5 Hyperlipidemia, unspecified (principal); I10 Essential (primary) hypertension; E07.9 Disorder of thyroid, unspecified; Z79.899 Other long term (current) drug therapy
CPT/HCPCS: 36415; 80053; 80061; 84439; 84443; 85027

== ENCOUNTER 2024-09-11 08:03 | Outpatient (CLI) | payer BC, SELFPAY ==
[2024-09-11 13:07] LABS: Hematocrit 42.4 % (37.0-47.0); Hemoglobin 13.5 g/dL (12.0-15.0); Mean Corpuscular HGB Conc 31.8 g/dl (32-36); Mean Corpuscular Hemoglobin 29.9 pg (26-34); Mean Corpuscular Volume 93.8 fl (80-100); Mean Platelet Volume 9.9 fl (7.4-10.4); Platelet Count Result 271 k/mm3 (150-375); Red Blood Count 4.52 M/mm3 (4.2-5.4); White Blood Count 6.5 K/mm3 (4.5-10.0)
[2024-09-11 13:39] LABS: Alanine Aminotransferase 22 U/L (6-35); Albumin Level 4.3 g/dL (3.5-5.1); Alkaline Phosphatase 66 U/L (38-126); Anion Gap 4 mmol/L (4-12); Aspartate Amino Transferase 53 U/L (14-36); Bilirubin,Total 0.5 mg/dL (0.2-1.3); Blood Urea Nitrogen 18 mg/dL (7-17); Calcium 9.9 mg/dL (8.4-10.2); Carbon Dioxide 35 mmol/L (22-30); Chloride 102 mmol/L (98-107); Cholesterol 154 mg/dL (0-200); Estimated Glomerular Filt Rate 56; Glucose 92 mg/dL (65-110); HDL Direct 61 mg/dL; LDL Cholesterol Direct 55 mg/dL; Potassium 4.5 mmol/L (3.4-5.0); Sodium 141 mmol/L (137-145); Total Protein 7.4 g/dL (6.3-8.2); Triglycerides 76 mg/dL (<150)
[2024-09-11 13:50] LABS: Thyroid Stimulating Hormone 0.835 uIU/mL (0.465-4.680)
[2024-09-11 13:52] LABS: Free T4 Free Thyroxine 1.23 ng/dL (0.78-2.19)
== END 2024-09-11 08:04 | disposition home or self-care (01) ==
LOC: ANHGOSHLAB 08:04
PROVIDERS: PCP Family Medicine; Visit Provider Family Medicine
DX: E78.5 Hyperlipidemia, unspecified (principal); E07.9 Disorder of thyroid, unspecified; I10 Essential (primary) hypertension; Z79.899 Other long term (current) drug therapy
CPT/HCPCS: 36415; 80053; 80061; 84439; 84443; 85027

== ENCOUNTER 2025-03-23 15:06 | Outpatient (CLI) | payer BC, SELFPAY ==
--- NOTE | ~2025-03-23 | MM_ITS ---
EXAMINATION: MM screening servando BI w lolis HISTORY: Screening TECHNIQUE: Craniocaudal and mediolateral oblique 3-D tomosynthesis images were obtained and synthetic 2-D images were generated. CAD analysis was submitted and interpreted. COMPARISON: Comparison to multiple prior studies sequentially, with oldest reviewed study dated , 08/01/2010 BREAST PARENCHYMAL COMPOSITION: Not Dense: There are scattered areas of fibroglandular density. FINDINGS: There is no evidence of suspicious mass, calcification, or architectural distortion to suggest malignancy in either breast. IMPRESSION: 1. No mammographic evidence of malignancy. 2. Recommend routine screening mammography in one year. BI-RADS Category 1: Negative Reviewed, dictated and finalized at location A. LE EXAMINER
== END 2025-03-23 15:07 | disposition home or self-care (01) ==
LOC: ANHFOHIMG 15:06
PROVIDERS: PCP Family Medicine; Visit Provider Family Medicine
DX: Z12.31 Encounter for screening mammogram for malignant neoplasm of breast (principal)
CPT/HCPCS: 77063; 77067